=== PATIENT | male | born 1980 | race Caucasian/White ===

== ENCOUNTER → 2020-08-24 17:20 | Outpatient (CLI) | payer OTHER, SELFPAY ==
--- NOTE | ~2020-08-24 | XR_ITS ---
EXAMINATION: XR abdomen/kub 1V, XR lumbar spine 2-3V DATE: 08/24/2020 17:44 INDICATION: Low back pain TECHNIQUE: 1. A supine view of the abdomen on 2 radiographs was obtained. 2. AP, lateral and coned-down lateral lumbosacral views of the lumbar spine were obtained. COMPARISON: None. FINDINGS: KUB: Small amount of gas and stool scattered throughout the colon. No dilated loops of gas-filled bowel to suggest obstruction. Small phlebolith in the left hemipelvis. No other suspicious calcifications in the abdomen or pelvis. Lung bases are clear. Heart size is normal. Bones are unremarkable. Lumbar spine: 3 mm retrolisthesis L4 on L5. Minimal likely physiologic anterior wedging at T12. Lumbar vertebral ochoa dy heights are normal. Disc heights are normal with mild anterior degenerative endplate changes at se veral levels in the lumbar and lower thoracic spine. Moderate facet osteoarthritis on the right at L5 -S1. Otherwise minimal to mild lumbar facet osteoarthritis. Sacrum and bilateral sacral iliac joints are normal. IMPRESSION: 1. 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 Otherwise minimal to mild lumbar spondylosis. 2. Normal bowel gas pattern and no evident urolithiasis. Reviewed, dictated and finalized at location A. T COORDINATOR IMPRESSION: 1. 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 Otherwise minimal to mi ld lumbar spondylosis. 2. Normal bowel gas pattern and no evident urolithiasis.
== END ==
PROVIDERS: PCP Physician Assistant; Visit Provider Physician Assistant
DX: M51.36 Other intervertebral disc degeneration, lumbar region (principal); M47.896 Other spondylosis, lumbar region
CPT/HCPCS: 72100; 74018

== ENCOUNTER → 2021-07-23 07:57 | Outpatient (CLI) | payer OTHER, SELFPAY ==
--- NOTE | ~2021-07-23 | US_ITS ---
EXAMINATION: US abdomen complete EXAM DATE: 07/23/2021 08:34 INDICATION: Upper abdominal pain. TECHNIQUE: Multiple grayscale and Doppler images of the complete abdomen were obtained (by a technolo gist who performed the scan) and subsequently reviewed. There is no prior study for comparison. FINDINGS: The abdominal aorta is normal in caliber. Visualized portion IVC is patent. The pancreatic head a nd body are normal in appearance. The pancreatic tail is not visualized. The liver has normal echogenicity and contour. There are no focal liver lesions identified. There is no evidence of intrahepatic biliary duct dilation. Portal venous flow was seen in the hepatopedal , normal direction and has normal Doppler waveform. Common bile duct measures 4 mm, which is normal. The gallbladder wall is normal in thickness, with ex pected amount of distention. No sonographic evidence of pericholecystic fluid. There is no cholelit hiases. Technologist performing exam reports patient did not demonstrate sonographic Joshi's sign. Please note that this sign is less reliable in patients who have received pain medication. Right kidney: There is normal contour and echogenicity. It measures 11.4 x 4.5 x 7.1 centimeters. There are no focal renal lesions identified. There is no hydronephrosis. Left kidney: There is normal contour and echogenicity. It measures 11.0 x 6.2 x 5.7 centimeters. T here are no focal renal lesions identified. There is no hydronephrosis. The spleen measures 10.8 centimeters and is morphologically normal. IMPRESSION: 1. Unremarkable complete abdominal ultrasound exam. Reviewed, dictated and finalized at location B. OVOLTAIC TECHNICIAN
--- NOTE | ~2021-07-23 | XR_ITS ---
EXAMINATION: [id number]_CR EXAM DATE: 07/23/2021 08:26 INDICATION: Right-sided lateral mid rib pain for 2 weeks. TECHNIQUE: Frontal projection of the upper right ribs, frontal projection of the lower right ribs, ob lique projection of the right ribs, frontal chest x-ray(s) for interpretation. There is no prior cooper dy for comparison. FINDINGS: There are no displaced acute right rib fractures identified. There is no soft tissue abno rmality seen. No confluent consolidation, pneumothorax or pleural effusion suspected. IMPRESSION: No displaced right rib fractures or other acute cardiopulmonary findings. Reviewed, dictated and finalized at location B. ODITY MERCHANT IMPRESSION: No displaced right rib fractures or other acute cardiopulmonary fi ndings.
--- NOTE | ~2021-07-23 | XR_ITS ---
EXAMINATION: XR thoracic spine 3V EXAM DATE: 07/23/2021 08:26 INDICATION: Acute thoracic back pain. TECHNIQUE: Frontal and lateral projections of the thoracic spine as well as lateral swimmers projecti on of the upper thoracic spine for interpretation. There is no prior study for comparison. FINDINGS: There are no acute fractures identified. There are no bony erosions identified. The verteb ral bodies are aligned in the AP dimension. Vertebral body and disc heights are well-maintained. Para spinal soft tissue is unremarkable. IMPRESSION: Unremarkable thoracic x-ray exam. Reviewed, dictated and finalized at location B. E BRAIDER
== END ==
PROVIDERS: PCP Physician Assistant; Visit Provider Physician Assistant
DX: M54.6 Pain in thoracic spine (principal); R07.81 Pleurodynia; R10.10 Upper abdominal pain, unspecified
CPT/HCPCS: 71101; 72072; 76700

== ENCOUNTER → 2023-01-13 07:50 | Outpatient (CLI) | payer BC, SELFPAY ==
--- NOTE | ~2023-01-13 | US_ITS ---
US right upper quadrant INDICATION: Right upper quadrant pain PROCEDURE: Realtime right upper abdominal ultrasound. COMPARISON: 07/23/2021 FINDINGS: The pancreas is normal without focal mass or pancreatic ductal dilation. Liver echotexture is normal without discrete mass. There is normal directional flow in the portal vein. The gallbladder is normal without stones, gallbladder wall thickening or pericholecystic fluid. Comm on bile duct measures 3 mm. No sonographic Joshi's sign. IMPRESSION: 1: Unremarkable abdominal ultrasound. Reviewed, dictated and finalized at location A.
== END ==
PROVIDERS: PCP Physician Assistant; Visit Provider Physician Assistant
DX: R07.81 Pleurodynia (principal); R10.11 Right upper quadrant pain
CPT/HCPCS: 76705

== ENCOUNTER 2024-04-21 12:37 | Outpatient (CLI) | payer BC, SELFPAY ==
--- NOTE | ~2024-04-21 | XR_ITS ---
Clinical Indication: Cough, fever PA and lateral views of the chest: Comparison: None Findings: The lungs are clear, without evidence of focal consolidation or pleural effusion. Cardiome diastinal silhouette is within normal limits. Bones and soft tissues are unremarkable. Impression: Normal chest. Reviewed, dictated and finalized at location . Impression: Normal chest.
== END 2024-04-21 12:38 | disposition home or self-care (01) ==
PROVIDERS: PCP Physician Assistant; Visit Provider Physician Assistant
DX: R09.89 Other specified symptoms and signs involving the circulatory and respiratory systems (principal)
CPT/HCPCS: 71046

== ENCOUNTER 2025-05-11 00:09 | Day surgery (SDC) | payer BC, SELFPAY ==
[2025-04-26 08:40] VITALS: BMI 29.9
--- OUTSIDE RECORDS SUMMARY | 2025-05-11 00:13 | XMS_ITS | Encounter Summary ---
Author Organization [facility] Address [address] [place] [address] Care Team Providers Care Belt Cleaner Name Role Phone Chuy Salgado MD Primary Care Provider [phone] Encounter Details Date Type Department Care Team (Latest Contact Info) Description 08/07/2001 Outpatient Historical HIS [facility] Chuy Wilhelm MD 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 [place], [place] [id number] PCP - General 03/27/01 documented as of this encounter
--- OUTSIDE RECORDS SUMMARY | 2025-05-11 00:13 | XMS_ITS | Clinical Summary ---
Author Organization [facility] [email or web address] Address [address] [place] [address] Care Team Providers Care Monorail Hooker Name Role Phone Lauren Capps Primary Care Pr ovider Source Comments [facility],non-owned Affiliates and Associated Physician Practices is amultiple site organization consisting of ambulatory clinics and hospital sitesin [place], [place], [place] and [place]. This disclosure is being madepursuant to the Care Everywhere program and may not contain all information available regarding this patient. Last updated 18.[facility] [email or web address] Allergies No known active allergies Medications * Be aware that medications may not be up to date on this document. Alwaysverify current medications with the patient. rosuvastatin (Crestor) 10 MG tablet Take 1 (one) tablet by mouth every evening Active Encounters Date Type Department Care Team Description 04/20/2025 Travel 02/22/2025 Telephone [facility] - Dermatology [address] [place] [phone] Tanisha Reveles MD Follow-up (Post MiraDry 02/15/25) 02/15/2025 8:00 AM CDT Cosmetic Visit [facility] - Cosmetic Dermatology [address] , [facility] [address] [place] [id number] Cara Melendez MD 02/15/2025 Travel 02/10/2025 Telephone [facility] - Dermatology [address] [place] [address] Rajni Sagastume MD Follow-up from Last 3 Months Family History Medical History Relation Name Comments Cancer - Skin, Melanoma Mother Cancer - Skin, Non Melanoma Neg Hx Relation Name Status Comments Mother Social History Tobacco Use Types Packs/Day Years Used Date Smoking Tobacco: Former Cigarettes Smokeless Tobacco: Never Tobacco Cessation:Counseling Given: Not Answered Alcohol Use Standard Drinks/Week Comments Yes 0 (1 standard drink = 0.6 oz pur e alcohol) Sex and Gender Information Value Date Recorded Sex Assigned at Male 03/30/2024 1:50 PM CDT Legal Sex Male 1:49 PM CDT Gender Identity Male 03/30/2024 1:50 PM CDT Sexual Orientation Straight 03/30/2024 1: 50 PM CDT Plan of Treatment Upcoming Encounters Date Type Department Care Team (Late st Contact Info) Description 06/27/2025 8:30 AM PIPE WASHER Office Visit [facility] - Cosmetic Dermatology [address], [facility] [address] [place] [address] Jessie Weston, LUDLOW MACHINE OPERATOR-PLANT ETIOLOGIST [address] [facility] [address] [place] [address] Health Maintenance Due Date Last Done Comments COLOGUARD (AGES 45-75) - COLON CA SCREENING 1979 COLON MONITORING 1979 COLONOSCOPY - COLON CA SCREENING 1979 CT COLONOGRAPHY - COLON CA SCREENING 1979 Colorectal Cancer Screening 1979 FIT - COLON CA SCREENING 1979 FLEX SIG - COLON CA SCREENING 1979 HIV SCREENING 1994 HEPATITIS C SCREENING 05/09/1997 DTAP/TDAP/TD VACCINES (1 - Tdap) 1998 HEPATITIS B VACCINE (1 of 3 - 19+ 3-dose series) 1998 HPV VACCINE (1 - 3-dose SCDM series) 2006 DEPRESSION SCREENING 08/11/2024 COVID-19 VACCINE ( season) 2025 06/06/2022, 07/10/2021, 11/30/2020, Additional history exists INFLUENZA VACCINE (#1) 2025 06/25/2023 ZOSTER VACCINE (1 of 2) 2029 HIB VACCINE Aged Out No longer eligi ble based on patient's age to complete this topic MENINGOCOCCAL (Group B) VACCINE SHARED DECISION-MAKING Aged Out No longer eligible based on patient's age to complete this topic MENINGOCOCCAL GROUPS A/C/Y/W VACCINE Aged Out No longer eligible based on patient's age to complete this topic PNEUMOCOCCAL VACCINE Aged Out No long er eligible based on patient's age to complete this topic [place] [address] Care Teams Monorail Hooker Relationship Specialty Start Date End Date Lauren Capps PA [address] [place] [address] PCP - General Physician Financial Adviser 05/17/24
--- OUTSIDE RECORDS SUMMARY | 2025-05-11 00:13 | XMS_ITS | Encounter Summary ---
Author Organization [facility] Address [address] [place] [address] Care Team Providers Care Merchandising Internship Name Role Phone Chuy Salgado MD Primary Care Provider [phone] Encounter Details Date Type Department Care Team (Latest Contact Info) Description 03/27/2001 Outpatient Historical HIS [facility] Chuy Wilhelm MD [address] [place], [place] [id number] Routine general medical examination at a health care facility (Primary Dx) Social History Tobacco Use Types Packs/Day Years Used Date Smoking Tobacco: Never Assessed Sex and Gender Information Value Date Recorded Sex Assigned at Not on file Legal Sex Male 3:16 AM DEVELOPER ADVOCATE Gender Identity Not on file Sexual Orientation Not on file documented as of this encounter Plan of Treatment Not on file documented as of this encounter Visit Diagnoses Diagnosis Routine general medical examination at a health care facility- Primary documented in this encounter Care Teams Merchandising Internship Relationship Specialty Start Date End Date Chuy Salgado MD [address] [place] [address] PCP - General 03/27/01 documented as of this encounter
--- OUTSIDE RECORDS SUMMARY | 2025-05-11 00:13 | XMS_ITS | Encounter Summary ---
Author Organization [facility] Address [address] [place] [address] Care Team Providers Care Commercial Interior Designer Name Role Phone Chuy Salgado MD Primary Care Provider Encounter Details Date Type Department Care Team (Late st Contact Info) Description 01/30/2009 Outpatient Historical HIS [facility] Chuy Wilhelm MD [address] [place], [place] [phone] Headache Social History Tobacco Use Types Packs/Day Years Used Date Smoking Tobacco: Every Day Cigarettes Alcohol Use Standard Drinks/Week Comments Yes 0 (1 standard drink = 0.6 oz pur e alcohol) Sex and Gender Information Value Date Recorded Sex Assigned at Not on file Legal Sex Male 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
--- OUTSIDE RECORDS SUMMARY | 2025-05-11 00:13 | XMS_ITS | Encounter Summary ---
Author Organization [facility] Address [address] [place] [address] Care Team Providers Care Printer Slotter Helper Name Role Phone Chuy Salgado MD Primary Care Provider [phone] Encounter Details Date Type Department Care Team (Latest Contact Info) Description 08/31/2004 Outpatient Historical HIS [facility] Chuy Wilhelm MD [address] [place] [address] ABNORMAL LIVER FUNCTION STUDY (Primary Dx) Social History Tobacco Use Types Packs/Day Years Used Date Smoking Tobacco: Never Assessed Sex and Gender Information Value Date Recorded Sex Assigned at Not on file Legal Sex Male 3:16 AM UNIVERSAL BRANCH CONSULTANT Gender Identity Not on file Sexual Orientation Not on file documented as of this encounter Plan of Treatment Not on file documented as of this encounter Procedures Procedure Name Priority Date/Time Associated Diagnosis Comments CBC WITH DIFFERENTIAL Routine 08/31/2004 9:05 AM UNIVERSAL BRANCH CONSULTANT CBC WITH DIFFERENTIAL Routine 08/31/2004 9:05 AM UNIVERSAL BRANCH CONSULTANT TSH Routine 08/31/2004 9:05 AM UNIVERSAL BRANCH CONSULTANT LIPID PANEL Routine 08/31/2004 9:05 AM UNIVERSAL BRANCH CONSULTANT COMPREHENSIVE METABOLIC PANEL Routine 08/31/2004 9:05 AM UNIVERSAL BRANCH CONSULTANT documented in this encounter Results * CBC WITH DIFFERENTIAL (08/31/2004 9:05 AM UNIVERSAL BRANCH CONSULTANT) NEUTROPHILS 52 45 - 70 % INTERFAC E SYSTEM LYMPHOCYTES 38 16 - 45 % INTERFAC E SYSTEM MONOCYTES 8 3 - 13 % INTERFACE SYSTEM EOSINOPHILS 1 0 - 7 % INTERFAC E SYSTEM BASOPHILS 1 0 - 2 % INTERFACE SYSTEM NEUTROPHIL ABSOLUTE 2.45 1.90 - 7.00 K/uL INTERFACE SYSTEM LYMPHOCYTE ABSOLUTE 1.77 0.70 - 4.50 K/uL INTERFACE SYSTEM MONOCYTE ABSOLUTE 0.38 0.10 - 1.30 K/uL INTERFACE SYSTEM EOSINOPHIL ABSOLUTE 0.05 0.00 - 0.70 K/uL INTERFACE SYSTEM BASOPHILS ABSOLUTE 0.04 0.00 - 0.20 K/uL INTERFACE SYSTEM 08/31/2004 9:05 AM UNIVERSAL BRANCH CONSULTANT Chuy Salgado MD HEMATOLOGY ORDERABLES Final Resu lt INTERFACE SYSTEM Refer to clinic/hospital department * CBC WITH DIFFERENTIAL (08/31/2004 9:05 AM UNIVERSAL BRANCH CONSULTANT) WBC 4.7 4.0 - 9.8 K/uL INTERFACE SYSTEM RBC 5.02 4.50 - 5.40 M/uL INTERFACE SYSTEM HEMOGLOBIN 15.6 13.6 - 16.5 g/dL INTERFACE SYSTEM HEMATOCRIT 46.4 40.0 - 48.0 % INTERFACE SYSTEM MCV 92.4 82.0 - 99.0 fL INTERFACE SYSTEM MCH 31.1 27.2 - 32.6 pg INTERFACE SYSTEM MCHC 33.6 31.5 - 35.5 % INTERFACE SYSTEM RDW 13.2 11.5 - 14.5 % INTERFACE SYSTEM RDW-STDEV 44.8 37.1 - 48.7 fL INTERFACE SYSTEM PLATELETS 218 140 - 350 K/uL INTERFACE SYSTEM MPV 10.9 9.3 - 12.4 fL INTERFACE SYSTEM 08/31/2004 9:05 AM UNIVERSAL BRANCH CONSULTANT Chuy Salgado MD HEMATOLOGY ORDERABLES Final Resu lt INTERFACE SYSTEM Refer to clinic/hospital department * TSH (08/31/2004 9:05 AM UNIVERSAL BRANCH CONSULTANT) TSH 1.79 0.27 - 4.20 uU/mL INTERFACE SYSTEM 08/31/2004 9:05 AM UNIVERSAL BRANCH CONSULTANT Chuy Salgado MD CHEMISTRY ORDERABLES Final Resul t Performing Organization Address [facility] Co de Phone Number INTERFACE SYSTEM Refer to clinic/hospital department * (ABNORMAL) LIPID PANEL (08/31/2004 9:05 AM UNIVERSAL BRANCH CONSULTANT) CHOLESTEROL 261(H) 100 - 199 mg/dL INTERFACE SYSTEM TRIGLYCERIDE 132 10 - 149 mg/dL INTERFACE SYSTEM HDL 58 40 - 59 mg/dL INTERFACE SYSTEM LDL CALCULATED 177(H) <=99 mg/dL INTERFACE SYSTEM CHOL/HDL RATIO 4.5 2.0 - 5.0 INTER FACE SYSTEM Comment:See interpretive karthikeyan a section for risk classifications. LIPID PANEL COMMENT See below INTERFACE SYSTEM Comment: Adult ATP III Classifications: Cholesterol (mg/dL) Triglyceride (mg/dL) Desirable <200 Normal <150 Borderline 200 - 239 Borderline High 150 - 199 High >=240 High 200 - 499 Very High >=500 HDL Cholesterol (mg/dL) LDL (mg/dL) Low (increased risk) <40 Optimal <100 High (reduced risk) >=60 Near or above optimal 100 - 129 Borderline 130 - 159 High 160 - 189 Very High >=190 LDL calculation is not accurate if Triglycerides are greater than 400 mg /dL Pediatric NCEP Classifications: Cholesterol(<20 years),(mg/dL) Triglyceride Desirable <170 Pediatric classification Borderline 170 - 199 not defined. High >=200 HDL (<5 years) LDL (mg/dL) No Reference Range Established Desirable <110 Borderline 110 - 129 High >=130 08/31/2004 9:05 AM UNIVERSAL BRANCH CONSULTANT Chuy Salgado MD CHEMISTRY ORDERABLES Final Resul t Performing Organization Address City/[facility]/ZIP Co de Phone Number INTERFACE SYSTEM Refer to clinic/hospital department * (ABNORMAL) COMPREHENSIVE METABOLIC PANEL (08/31/2004 9:05 AM UNIVERSAL BRANCH CONSULTANT) GLUCOSE 98 65 - 109 mg/dL INTERFACE SYSTEM CREATININE 1.1 0.5 - 1.3 mg/dL INTERFACE SYSTEM CALCIUM 9.4 8.6 - 10.2 mg/dL INTERFACE SYSTEM AST 57(H) 12 - 38 U/L INTERFACE SYSTEM ALKALINE PHOSPHATASE 81 40 - 129 U/L INTERFACE SYSTEM BUN 16 6 - 20 mg/dL INTERFACE SYSTEM BILIRUBIN TOTAL 0.5 0.2 - 1.0 mg/dL INTERFACE SYSTEM ALBUMIN 4.8 3.4 - 4.8 g/dL INTERFACE SYSTEM TOTAL PROTEIN 7.7 6.3 - 8.6 g/dL INTERFACE SYSTEM ALT 115(H) 0 - 41 U/L INTERFACE SYSTEM SODIUM 140 135 - 145 mmol/L INTERFACE SYSTEM POTASSIUM 4.4 3.5 - 4.9 mmol/L INTERFACE SYSTEM CHLORIDE 103 96 - 108 mmol/L INTERFACE SYSTEM CO2 28 22 - 30 mmol/L INTERFACE SYSTEM 08/31/2004 9:05 AM UNIVERSAL BRANCH CONSULTANT us Chuy Salgado MD CHEMISTRY ORDERABLES Final Resul t INTERFACE SYSTEM Refer to clinic/hospital department documented in this encounter Visit Diagnoses Diagnosis Nonspecific abnormal results of liver function study- Primary documented in this encounter Care Teams Printer Slotter Helper Relationship Specialty Start Date End Date Chuy Salgado MD [address] [facility] [address] [place] [address] PCP - General 03/27/01 documented as of this encounter
--- OUTSIDE RECORDS SUMMARY | 2025-05-11 00:13 | XMS_ITS | Data Portability ---
Author Organization [facility] Address [address] [facility] [address] Care Team Providers Care Electrophysiology Technologist Name Role Phone YASMEEN PARTIDA Primary Care Provider Unavailab le Assessment Encounter Date Assessment Date Assessment LastModified by Organization Details LastModified Time 10/17/2023 10/17/2023 Colonoscopy plan next year. Not available 10/17/2023 09:35:02 01/14/2025 01/14/2025 Eye exam and dental up-to-date Not available 02/04/2025 00:21:40 Plan of Treatment Reminders Order Date Submit Date Provider Last Modified By Organization Details Last Modified Time Details Appointments ANY 15 2025 09:00A M STACEY Benitez Not available Not available Not available Lab TSH + free T4, serum 2024 025 MARGARETH [facility], [address], [place], [address], 02/07/2025 07:06:43 CBC w/ auto diff 2024 025 MARGARETH [facility], [address], [place], [address], 02/07/2025 07:06:46 CMP, serum or plasma 2024 025 MARGARETH [facility], [address], [place], [address], 02/07/2025 07:06:44 lipid panel, serum 2024 025 MARGARETH Hunter, [address], [place], [address], 02/07/2025 07:06:42 PSA, total, serum or plasma 2024 025 MARGARETH Hunter, [address], [place], [address], 02/07/2025 07:06:48 testoster one, total, serum 2024 025 MARGARETHLAQUITA Gonzales, [address], [place], [address], 02/07/2025 07:06:49 HbA1c (hemoglob in A1c), blood 2024 025 MARGARETH Hunter, [address], [place], [address], 02/07/2025 07:06:45 urinalysi s complete, reflex culture 2023 024 MARGARETH Hunter, [address], [place], [address], 05/25/2024 13:11:50 urinalysi s, dipstick 2023 024 In-Office Order, Internal Use Only DO Not Attach Compendium DO Not Attach Compendium, Do Not Delete/merge, [id number] 05/21/2024 18:07:23 CBC w/ auto diff 2023 024 MARGARETH Hunter, [address], [place], [address], 05/25/2024 13:11:52 CMP, serum or plasma 2023 024 MARGARETH Hunter, [address], [place], [address], 05/25/2024 13:11:49 HbA1c (hemoglob in A1c), blood 2023 024 MARGARETH Hunter, [address], [place], [address], 05/25/2024 13:11:51 PSA, total, serum or plasma 2023 024 MARGARETH Hunter, [address], [place], [address], 11/04/2023 20:09:31 testoster one, total, serum 2023 024 MARGARETH Hunter, [address], [place], [address], 11/04/2023 20:09:31 TSH + free T4, serum 2023 024 MARGARETH Hunter, [address], [place], [address], 11/04/2023 20:09:28 CBC w/ auto diff 2023 024 MARGARETH Hunter, [address], [place], [address], 11/04/2023 20:09:30 CMP, serum or plasma 2023 024 MARGARETH Hunter, [address], [place], [address], 11/04/2023 20:09:29 HbA1c (hemoglob in A1c), blood 2023 024 MARGARETH Hunter, [address], [place], [address], 11/04/2023 20:09:30 lipid panel, serum 2023 024 MARGARETH Hunter, [address], [place], [address], 11/04/2023 20:09:29 Referral None recorded. Procedures colonosco py screening (PROC) - We have ran insurance bharath means and it has been verified he has coverage 2024 025 [facility], [address], [address], [place], [address], 02/22/2025 13:10:41 Surgeries None recorded. Imaging XR, chest, 2 view 2023 [facility], [address], [address], [place], [address], 04/21/2024 16:27:46 Medication Orders Cipro 500 mg tablet 2023 025 [id number], [address] [place], [address], 01/14/2025 09:41:38 Diflucan 150 mg tablet 2023 024 [facility][id number], [address] [place], [address], 01/14/2025 09:41:42 amoxicill in 875 mg-potass ium clavulana te 125 mg tablet 2023 024 [id number] [address] [place], [address], 05/21/2024 13:54:09 Patient TargetsNo targets recorded. Patient Instructions Encounter Date Encounter Id Patient Instructions Last Modified By Organization Details Last Modified Time 05/21/2024 [id number] A healthy lifestyle: care instructions Not available 05/21/2024 16:20:45 01/14/2025 [id number] A healthy lifestyle: care instructions Not available 01/14/2025 10:06:49 Reason for Referral None Reported. Results Created Date Observation Date Name Description Value Unit Range Abnormal Flag Note LastModifiedBy Organization Detail LastModifiedTime 10/30/19 24 10/31/2023 TSH+F REE T4 TSH 1.660 uIU/m L 0.450- 4.500 Not Available [facility] [address] [place], [address], 11/04/2023 20:09:28 10/30/19 24 10/31/2023 TSH+F REE T4 T4,free(dire ct) 1.23 NG/dL 0.82-1 .77 Not Available [facility] [address] [place], [address], 11/04/2023 20:09:28 10/30/19 24 10/31/2023 LIPID PANEL cholesterol, total 147 mg/dL 100-19 9 Not Available [facility] [address] [place], [address], 11/04/2023 20:09:28 10/30/19 24 10/31/2023 LIPID PANEL triglyceride s 109 mg/dL 0-149 Not Available [facility] [address] [place], [address], 11/04/2023 20:09:28 10/30/19 24 10/31/2023 LIPID PANEL HDL cholesterol 50 mg/dL >39 Not Available [facility] [address] [place], [address], 11/04/2023 20:09:28 10/30/19 24 10/31/2023 LIPID PANEL VLDL cholesterol kellie 20 mg/dL 5-40 Not Available [facility] [address] [place], [address], 11/04/2023 20:09:28 10/30/19 24 10/31/2023 LIPID PANEL LDL chol calc ([facility]) 77 mg/dL 0-99 Not Available [facility] [address] [place], [address], 11/04/2023 20:09:28 10/30/19 24 10/31/2023 COMP. METAB OLIC PANEL (14) glucose 94 mg/dL 70-99 Not Available [facility] [address] [place], [address], 11/04/2023 20:09:29 10/30/19 24 10/31/2023 COMP. METAB OLIC PANEL (14) BUN 15 mg/dL 6-24 Not Available [facility] [address] [place], [address], 11/04/2023 20:09:29 10/30/19 24 10/31/2023 COMP. METAB OLIC PANEL (14) creatinine 1.13 mg/dL 0.76-1 .27 Not Available [facility] [address] [place], [address], 11/04/2023 20:09:29 10/30/19 24 10/31/2023 COMP. METAB OLIC PANEL (14) eGFR 82 mL/mi n/1.7 3 >59 Not Available [facility] [address] [place], [address], 11/04/2023 20:09:29 10/30/19 24 10/31/2023 COMP. METAB OLIC PANEL (14) BUN/creatini ne ratio 13 9-20 Not Available [facility] [address] [place], [address], 11/04/2023 20:09:29 10/30/19 24 10/31/2023 COMP. METAB OLIC PANEL (14) sodium 143 mmol/ L 134-14 4 Not Available [facility] [address] [place], [address], 11/04/2023 20:09:29 10/30/19 24 10/31/2023 COMP. METAB OLIC PANEL (14) potassium 4.6 mmol/ L 3.5-5. 2 Not Available [facility] [address] [place], [address], 11/04/2023 20:09:29 10/30/19 24 10/31/2023 COMP. METAB OLIC PANEL (14) chloride 101 mmol/ L 96-106 Not Available [facility] [address] [place], [address], 11/04/2023 20:09:29 10/30/19 24 10/31/2023 COMP. METAB OLIC PANEL (14) carbon dioxide, total 25 mmol/ L 20-29 Not Available [facility] [address] [place], [address], 11/04/2023 20:09:29 10/30/19 24 10/31/2023 COMP. METAB OLIC PANEL (14) calcium 10.2 mg/dL 8.7-10 .2 Not Available [facility] [address] [place], [address], 11/04/2023 20:09:29 10/30/19 24 10/31/2023 COMP. METAB OLIC PANEL (14) protein, total 7.5 g/dL 6.0-8. 5 Not Available [facility] [address] [place], [address], 11/04/2023 20:09:29 10/30/19 24 10/31/2023 COMP. METAB OLIC PANEL (14) albumin 5.1 g/dL 4.1-5. 1 Not Available [facility] [address] [place], [address], 11/04/2023 20:09:29 10/30/19 24 10/31/2023 COMP. METAB OLIC PANEL (14) globulin, total 2.4 g/dL 1.5-4. 5 Not Available [facility] [address] [place], [address], 11/04/2023 20:09:29 10/30/19 24 10/31/2023 COMP. METAB OLIC PANEL (14) A/G ratio 2.1 1.2-2. 2 Not Available [facility] [address] [place], [address], 11/04/2023 20:09:29 10/30/19 24 10/31/2023 COMP. METAB OLIC PANEL (14) bilirubin, total 0.5 mg/dL 0.0-1. 2 Not Available [facility] [address] [place], [address], 11/04/2023 20:09:29 10/30/19 24 10/31/2023 COMP. METAB OLIC PANEL (14) alkaline phosphatase 70 IU/L 44-121 Not Available [facility] [address] [place], [address], 11/04/2023 20:09:29 10/30/19 24 10/31/2023 COMP. METAB OLIC PANEL (14) AST (SGOT) 40 IU/L 0-40 Not Available [facility] [address] [place], [address], 11/04/2023 20:09:29 10/30/19 24 10/31/2023 COMP. METAB OLIC PANEL (14) ALT (SGPT) 56 IU/L 0-44 above high normal Not Available [facility] [address] [place], [address], 11/04/2023 20:09:29 10/30/19 24 10/31/2023 HEMOG LOBIN A1C hemoglobin A1C 5.9 % 4.8-5. 6 above high normal Predi abete s: 5.7 - 6.4 Diabe daniel: >6.4 Glyce yarelis contr ol for adult s with diabe daniel: <7.0 Not Available [facility] [address] [place], [address], 11/04/2023 20:09:29 10/30/19 24 10/30/2023 CBC WITH DIFFE RENTI AL/PL ATELE T WBC 5.5 x10e3 /uL 3.4-10 .8 Not Available [facility] [address] [place], [address], 11/04/2023 20:09:30 10/30/19 24 10/30/2023 CBC WITH DIFFE RENTI AL/PL ATELE T RBC 5.17 x10e6 /uL 4.14-5 .80 Not Available [facility] [address] [place], [address], 11/04/2023 20:09:30 10/30/19 24 10/30/2023 CBC WITH DIFFE RENTI AL/PL ATELE T hemoglobin 15.8 g/dL 13.0-1 7.7 Not Available [facility] [address] [place], [address], 11/04/2023 20:09:30 10/30/19 24 10/30/2023 CBC WITH DIFFE RENTI AL/PL ATELE T hematocrit 45.3 % 37.5-5 1.0 Not Available [facility] [address] [place], [address], 11/04/2023 20:09:30 10/30/19 24 10/30/2023 CBC WITH DIFFE RENTI AL/PL ATELE T MCV 88 fL 79-97 Not Available [facility] [address] [place], [address], 11/04/2023 20:09:30 10/30/19 24 10/30/2023 CBC WITH DIFFE RENTI AL/PL ATELE T MCH 30.6 pg 26.6-3 3.0 Not Available [facility] [address] [place], [address], 11/04/2023 20:09:30 03/21/20 24 10/30/2023 CBC WITH DIFFE RENTI AL/PL ATELE T MCHC 34.9 g/dL 31.5-3 5.7 Not Available [facility] [address] [place], [address], 11/04/2023 20:09:30 10/30/19 24 10/30/2023 CBC WITH DIFFE RENTI AL/PL ATELE T RDW 12.9 % 11.6-1 5.4 Not Available [facility] [address] [place], [address], 11/04/2023 20:09:30 10/30/19 24 10/30/2023 CBC WITH DIFFE RENTI AL/PL ATELE T platelets 231 x10e3 /uL 150-45 0 Not Available [facility] [address] [place], [address], 11/04/2023 20:09:30 10/30/19 24 10/30/2023 CBC WITH DIFFE RENTI AL/PL ATELE T neutrophils 48 % notest ab. Not Available [facility] [address] [place], [address], 11/04/2023 20:09:30 10/30/19 24 10/30/2023 CBC WITH DIFFE RENTI AL/PL ATELE T lymphs 42 % notest ab. Not Available [facility] [address] [place], [address], 11/04/2023 20:09:30 10/30/19 24 10/30/2023 CBC WITH DIFFE RENTI AL/PL ATELE T monocytes 8 % notest ab. Not Available [facility] [address] [place], [address], 11/04/2023 20:09:30 10/30/19 24 10/30/2023 CBC WITH DIFFE RENTI AL/PL ATELE T eos 1 % notest ab. Not Available [facility] [address] [place], [address], 11/04/2023 20:09:30 10/30/19 24 10/30/2023 CBC WITH DIFFE RENTI AL/PL ATELE T basos 1 % notest ab. Not Available [facility] [address] [place], [address], 11/04/2023 20:09:30 10/30/19 24 10/30/2023 CBC WITH DIFFE RENTI AL/PL ATELE T neutrophils (absolute) 2.7 x10e3 /uL 1.4-7. 0 Not Available [facility] [address] [place], [address], 11/04/2023 20:09:30 10/30/19 24 10/30/2023 CBC WITH DIFFE RENTI AL/PL ATELE T lymphs (absolute) 2.3 x10e3 /uL 0.7-3. 1 Not Available [facility] [address] [place], [address], 11/04/2023 20:09:30 10/30/19 24 10/30/2023 CBC WITH DIFFE RENTI AL/PL ATELE T monocytes(ab solute) 0.5 x10e3 /uL 0.1-0. 9 Not Available [facility] [address] [place], [address], 11/04/2023 20:09:30 10/30/19 24 10/30/2023 CBC WITH DIFFE RENTI AL/PL ATELE T eos (absolute) 0.0 x10e3 /uL 0.0-0. 4 Not Available [facility] [address] [place], [address], 11/04/2023 20:09:30 10/30/19 24 10/30/2023 CBC WITH DIFFE RENTI AL/PL ATELE T baso (absolute) 0.0 x10e3 /uL 0.0-0. 2 Not Available [facility] [address] [place], [address], 11/04/2023 20:09:30 10/30/19 24 10/30/2023 CBC WITH DIFFE RENTI AL/PL ATELE T immature granulocytes 0 % notest ab. Not Available [facility] [address] [place], [address], 11/04/2023 20:09:30 10/30/19 24 10/30/2023 CBC WITH DIFFE RENTI AL/PL ATELE T immature grans (abs) 0.0 x10e3 /uL 0.0-0. 1 Not Available [facility] [address] [place], [address], 11/04/2023 20:09:30 10/30/19 24 10/31/2023 PROST ATE-S PECIF IC AG prostate specific Ag 0.9 NG/mL 0.0-4. 0 Della ECLIA metho dolog y. Accor ding to the Ameri can Urolo gical Assoc iatio n, Serum PSA shoul d decre ase and remai n at undet ectab le level s after radic al prost atect yasmin. The AUA defin es bioch emica l recur rence as an initi al PSA value 0.2 ng/mL or great er follo wed by a subse quent confi rmato ry PSA value 0.2 ng/mL or great er. Value s obtai sandi with diffe rent assay metho ds or kits canno t be used inter [place] eably . Resul ts canno t be inter prete d as absol poarch evide nce of the prese nce or absen ce of alin coto se. Not Available [facility] [address] [place], [address], 11/04/2023 20:09:31 10/30/19 24 11/04/2023 TESTO STERO NE, TOTAL , LC/MS testosterone , total, lc/MS 432 NG/dL This test was devel oped and its perfo rmanc e mulu cteri stics deter mined by [facility]. It has not been clear ed or appro jack by the Food and Drug Admin istra tion. Refer ence Range : Adult Males >18 years 264 - 916 This [facility] LC/MS -MS metho d is curre ntly certi fied by the CDC Hormo ne Stand ardiz ation Progr am (HoST ). Adult male refer ence inter [place] is based on a popul ation of healt hy nonob shubham males (BMI <3 0) betwe en 19 and 39 years old. Duncan dewey, et.al . JCEM 2017, 102;1 161-1 173 PMID: 77330 103. Not Available [facility] [address] [facility], [place], [address], 11/04/2023 20:09:31 05/21/2005/21/2024 urina lysis , dipst ick Leukocytes Negati ve Not Available In-Office Order Internal Use Only DO Not Attach Compendium DO Not Attach Compendium, Do Not Delete/merge, 05/21/2024 18:06:40 05/21/2005/21/2024 urina lysis , dipst ick Nitrite negati ve Not Available In-Office Order Internal Use Only DO Not Attach Compendium DO Not Attach Compendium, Do Not Delete/merge, 05/21/2024 18:06:40 05/21/2005/21/2024 urina lysis , dipst ick Urobilinogen .2 Not Available In-Of fice Order Internal Use Only DO Not Attach Compendium DO Not Attach Compendium, Do Not Delete/merge, 05/21/2024 18:06:40 05/21/20 24 05/21/2024 urina lysis , dipst ick Protein Negati ve Not Available In-Office Order Internal Use Only DO Not Attach Compendium DO Not Attach Compendium, Do Not Delete/merge, 05/21/2024 18:06:40 05/21/2005/21/2024 urina lysis , dipst ick pH 6.0 Not Available In-Office Order Internal Use Only DO Not Attach Compendium DO Not Attach Compendium, Do Not Delete/merge, [facility] 05/21/2024 18:06:40 05/21/20 24 05/21/2024 urina lysis , dipst ick Blood Negati ve Not Available In-Office Order Internal Use Only DO Not Attach Compendium DO Not Attach Compendium, Do Not Delete/merge, [facility] 05/21/2024 18:06:40 05/21/20 24 05/21/2024 urina lysis , dipst ick Specific [place] 1.010 Not Available In-Off ice Order Internal Use Only DO Not Attach Compendium DO Not Attach Compendium, Do Not Delete/merge, [facility] 05/21/2024 18:06:40 05/21/20 24 05/21/2024 urina lysis , dipst ick Ketone Negati ve Not Available In-Office Order Internal Use Only DO Not Attach Compendium DO Not Attach Compendium, Do Not Delete/merge, [facility] 05/21/2024 18:06:40 05/21/20 24 05/21/2024 urina lysis , dipst ick Bilirubin Negati ve Not Available In-Office Order Internal Use Only DO Not Attach Compendium DO Not Attach Compendium, Do Not Delete/merge, [facility] 05/21/2024 18:06:40 05/21/2005/21/2024 urina lysis , dipst ick Glucose 100 Not Available In-Office Order Internal Use Only DO Not Attach Compendium DO Not Attach Compendium, Do Not Delete/merge, [facility] 05/21/2024 18:06:40 05/21/20 24 05/21/2024 urina lysis , dipst ick Appearance Clear Not Available In-Offi ce Order Internal Use Only DO Not Attach Compendium DO Not Attach Compendium, Do Not Delete/merge, [facility] 05/21/2024 18:06:40 05/21/20 24 05/21/2024 urina lysis , dipst ick Color Pale Yellow Not Available In-Office Order Internal Use Only DO Not Attach Compendium DO Not Attach Compendium, Do Not Delete/merge, [id number] 05/21/2024 18:06:40 05/24/2005/25/2024 COMP. METAB OLIC PANEL (14) glucose 92 mg/dL 70-99 Not Available [facility] ([facility]) [address] [facility], [place], [address], 05/25/2024 13:11:48 05/24/2005/25/2024 COMP. METAB OLIC PANEL (14) BUN 12 mg/dL 6-24 Not Available [facility] ([facility]) [address] [place], [address], 05/25/2024 13:11:48 05/24/2005/25/2024 COMP. METAB OLIC PANEL (14) creatinine 1.04 mg/dL 0.76-1 .27 Not Available [facility] ([facility]) [address] [facility], [place], [address], 05/25/2024 13:11:48 05/24/20 24 05/25/2024 COMP. METAB OLIC PANEL (14) eGFR 90 mL/mi n/1.7 3 >59 Not Available [facility] ([facility]) [address] [facility], [place], [address], 05/25/2024 13:11:48 05/24/20 24 05/25/2024 COMP. METAB OLIC PANEL (14) BUN/creatini ne ratio 12 9-20 Not Available [facility] ([facility]) [address] [place], [address], 05/25/2024 13:11:48 05/24/2005/25/2024 COMP. METAB OLIC PANEL (14) sodium 142 mmol/ L 134-14 4 Not Available [facility] ([facility]) [address] [place], [address], 05/25/2024 13:11:48 05/24/20 24 05/25/2024 COMP. METAB OLIC PANEL (14) potassium 4.4 mmol/ L 3.5-5. 2 Not Available [facility] ([facility]) [address] [place], [address], 05/25/2024 13:11:48 05/24/20 24 05/25/2024 COMP. METAB OLIC PANEL (14) chloride 102 mmol/ L 96-106 Not Available [facility] ([facility]) [address] [place], [address], 05/25/2024 13:11:48 05/24/2005/25/2024 COMP. METAB OLIC PANEL (14) carbon dioxide, total 26 mmol/ L 20-29 Not Available [facility] ([facility]) [address] [facility], [place], [address], 05/25/2024 13:11:48 05/24/2005/25/2024 COMP. METAB OLIC PANEL (14) calcium 9.7 mg/dL 8.7-10 .2 Not Available [facility] ([facility]) [address] [place], [address], 05/25/2024 13:11:48 05/24/20 24 05/25/2024 COMP. METAB OLIC PANEL (14) protein, total 7.2 g/dL 6.0-8. 5 Not Available [facility] ([facility]) [address] [place], [address], 05/25/2024 13:11:48 05/24/20 24 05/25/2024 COMP. METAB OLIC PANEL (14) albumin 5.1 g/dL 4.1-5. 1 Not Available [facility] ([facility]) [address] [place], [address], 05/25/2024 13:11:48 05/24/20 24 05/25/2024 COMP. METAB OLIC PANEL (14) globulin, total 2.1 g/dL 1.5-4. 5 Not Available [facility] ([facility]) [address] [place], [address], 05/25/2024 13:11:48 05/24/2005/25/2024 COMP. METAB OLIC PANEL (14) bilirubin, total 0.5 mg/dL 0.0-1. 2 Not Available [facility] ([facility]) [address] [facility], [place], [address], 05/25/2024 13:11:48 05/24/20 24 05/25/2024 COMP. METAB OLIC PANEL (14) alkaline phosphatase 65 IU/L 44-121 Not Available [facility] ([facility]) [address] [place], [address], 05/25/2024 13:11:48 05/24/20 24 05/25/2024 COMP. METAB OLIC PANEL (14) AST (SGOT) 29 IU/L 0-40 Not Available [facility] ([facility]) [address] [facility], [place], [address], 05/25/2024 13:11:48 05/24/2005/25/2024 COMP. METAB OLIC PANEL (14) ALT (SGPT) 42 IU/L 0-44 Not Available [facility] ([facility]) [address] [place], [address], 05/25/2024 13:11:48 05/24/2005/25/2024 UA WITH CULTU RE REFLE X specific gravity 1.007 1.005- 1.030 Not Available [facility] ([facility]) [address] [place], [address], 05/25/2024 13:11:50 05/24/2005/25/2024 UA WITH CULTU RE REFLE X pH 6.5 5.0-7. 5 Not Available [facility] ([facility]) [address] [facility], [place], [address], 05/25/2024 13:11:50 05/24/2005/25/2024 UA WITH CULTU RE REFLE X urine-color YELLOW yellow Not Available [facility] ([facility]) [address] [facility], [place], [address], 05/25/2024 13:11:50 05/24/2005/25/2024 UA WITH CULTU RE REFLE X appearance CLEAR clear Not Available [facility] ([facility]) [address] [facility], [place], [address], 05/25/2024 13:11:50 05/24/2005/25/2024 UA WITH CULTU RE REFLE X WBC esterase NEGATI VE negati ve Not Available [facility] ([facility]) [address] [facility], [place], [address], 05/25/2024 13:11:50 05/24/2005/25/2024 UA WITH CULTU RE REFLE X protein NEGATI VE negati ve/tra ce Not Available [facility] ([facility]) [address] [facility], [place], [address], 05/25/2024 13:11:50 05/24/20 24 05/25/2024 UA WITH CULTU RE REFLE X glucose NEGATI VE negati ve Not Available [facility] ([facility]) [address] [facility], [place], [address], 05/25/2024 13:11:50 05/24/20 24 05/25/2024 UA WITH CULTU RE REFLE X ketones NEGATI VE negati ve Not Available [facility] ([facility]) [address] [facility], [place], [address], 05/25/2024 13:11:50 05/24/20 24 05/25/2024 UA WITH CULTU RE REFLE X occult blood NEGATI VE negati ve Not Available [facility] ([facility]) [address] [place], [address], 05/25/2024 13:11:50 05/24/2005/25/2024 UA WITH CULTU RE REFLE X bilirubin NEGATI VE negati ve Not Available [facility] ([facility]) [address] [place], [address], 05/25/2024 13:11:50 05/24/2005/25/2024 UA WITH CULTU RE REFLE X urobilinogen ,semi-qn 0.2 mg/dL 0.2-1. 0 Not Available [facility] ([facility]) [address] [place], [address], 05/25/2024 13:11:50 05/24/2005/25/2024 UA WITH CULTU RE REFLE X nitrite, urine NEGATI VE negati ve Not Available [facility] ([facility]) [address] [facility], [place], [address], 05/25/2024 13:11:50 05/24/2005/25/2024 UA WITH CULTU RE REFLE X microscopic examination COMMEN T Micro scopi c not indic ated and not perfo rmed. Not Available [facility] ([facility]) [address] [facility], [place], [address], 05/25/2024 13:11:50 05/24/2005/25/2024 UA WITH CULTU RE REFLE X urinalysis reflex COMMEN T This speci men will not refle x to a Urine Cultu re. Not Available [facility] ([facility]) [address] [place], [address], 05/25/2024 13:11:50 05/24/2005/25/2024 HEMOG LOBIN A1C hemoglobin A1C 5.9 % 4.8-5. 6 above high normal Predi abete s: 5.7 - 6.4 Diabe daniel: >6.4 Glyce yarelis contr ol for adult s with diabe daniel: <7.0 Not Available [facility] ([facility]) [address] [facility], [place], [address], 05/25/2024 13:11:51 05/24/2005/25/2024 CBC WITH DIFFE RENTI AL/PL ATELE T WBC 4.9 x10e3 /uL 3.4-10 .8 Not Available [facility] ([facility]) [address] [facility], [place], [address], 05/25/2024 13:11:52 05/24/2005/25/2024 CBC WITH DIFFE RENTI AL/PL ATELE T RBC 4.84 x10e6 /uL 4.14-5 .80 Not Available [facility] ([facility]) [address] [facility], [place], [address], 05/25/2024 13:11:52 05/24/2005/25/2024 CBC WITH DIFFE RENTI AL/PL ATELE T hemoglobin 14.8 g/dL 13.0-1 7.7 Not Available [facility] ([facility]) [address] [facility], [place], [address], 05/25/2024 13:11:52 05/24/2005/25/2024 CBC WITH DIFFE RENTI AL/PL ATELE T hematocrit 44.4 % 37.5-5 1.0 Not Available [facility] ([facility]) [address] [place], [address], 05/25/2024 13:11:52 05/24/2005/25/2024 CBC WITH DIFFE RENTI AL/PL ATELE T MCV 92 fL 79-97 Not Available [facility] ([facility]) [address] [place], [address], 05/25/2024 13:11:52 05/24/2005/25/2024 CBC WITH DIFFE RENTI AL/PL ATELE T MCH 30.6 pg 26.6-3 3.0 Not Available [facility] ([facility]) [address] [facility], [place], [address], 05/25/2024 13:11:52 05/24/2005/25/2024 CBC WITH DIFFE RENTI AL/PL ATELE T MCHC 33.3 g/dL 31.5-3 5.7 Not Available [facility] ([facility]) [address] [facility], [place], [address], 05/25/2024 13:11:52 05/24/2005/25/2024 CBC WITH DIFFE RENTI AL/PL ATELE T RDW 13.2 % 11.6-1 5.4 Not Available [facility] ([facility]) [address] [facility], [place], [address], 05/25/2024 13:11:52 05/24/2005/25/2024 CBC WITH DIFFE RENTI AL/PL ATELE T platelets 203 x10e3 /uL 150-45 0 Not Available [facility] ([facility]) [address] [facility], [place], [address], 05/25/2024 13:11:52 05/24/2005/25/2024 CBC WITH DIFFE RENTI AL/PL ATELE T neutrophils 38 % notest ab. Not Available [facility] ([facility]) [address] [facility], [place], [address], 05/25/2024 13:11:52 05/24/2005/25/2024 CBC WITH DIFFE RENTI AL/PL ATELE T lymphs 50 % notest ab. Not Available [facility] ([facility]) [address] [facility], [place], [address], 05/25/2024 13:11:52 05/24/20 24 05/25/2024 CBC WITH DIFFE RENTI AL/PL ATELE T monocytes 10 % notest ab. Not Available [facility] ([facility]) [address] [facility], [place], [address], 05/25/2024 13:11:52 05/24/2005/25/2024 CBC WITH DIFFE RENTI AL/PL ATELE T eos 1 % notest ab. Not Available [facility] ([facility]) [address] [facility], [place], [address], 05/25/2024 13:11:52 05/24/2005/25/2024 CBC WITH DIFFE RENTI AL/PL ATELE T basos 1 % notest ab. Not Available [facility] ([facility]) [address] [facility], [place], [address], 05/25/2024 13:11:52 05/24/2005/25/2024 CBC WITH DIFFE RENTI AL/PL ATELE T neutrophils (absolute) 1.9 x10e3 /uL 1.4-7. 0 Not Available [facility] ([facility]) [address] [facility], [place], [address], 05/25/2024 13:11:52 05/24/2005/25/2024 CBC WITH DIFFE RENTI AL/PL ATELE T lymphs (absolute) 2.4 x10e3 /uL 0.7-3. 1 Not Available [facility] ([facility]) [address] [facility], [place], [address], 05/25/2024 13:11:52 05/24/2005/25/2024 CBC WITH DIFFE RENTI AL/PL ATELE T monocytes(ab solute) 0.5 x10e3 /uL 0.1-0. 9 Not Available [facility] ([facility]) [address] [facility], [place], [address], 05/25/2024 13:11:52 05/24/2005/25/2024 CBC WITH DIFFE RENTI AL/PL ATELE T eos (absolute) 0.1 x10e3 /uL 0.0-0. 4 Not Available [facility] ([facility]) [address] [facility], [place], [address], 05/25/2024 13:11:52 05/24/2005/25/2024 CBC WITH DIFFE RENTI AL/PL ATELE T baso (absolute) 0.1 x10e3 /uL 0.0-0. 2 Not Available [facility] ([facility]) [address] [facility], [place], [address], 05/25/2024 13:11:52 05/24/2005/25/2024 CBC WITH DIFFE RENTI AL/PL ATELE T immature granulocytes 0 % notest ab. Not Available [facility] ([facility]) [address] [facility], [place], [address], 05/25/2024 13:11:52 05/24/2005/25/2024 CBC WITH DIFFE RENTI AL/PL ATELE T immature grans (abs) 0.0 x10e3 /uL 0.0-0. 1 Not Available [facility] ([facility]) [address] [place], [address], 05/25/2024 13:11:52 02/02/20 25 02/02/2025 LIPID PANEL W/ CHOL/ HDL RATIO cholesterol, total 148 mg/dL 100-19 9 Not Available [facility] [address] [place] [address], [address], 02/07/2025 07:06:42 02/02/20 25 02/02/2025 LIPID PANEL W/ CHOL/ HDL RATIO triglyceride s 127 mg/dL 0-149 Not Available [facility] [address] [place], [address], 02/07/2025 07:06:42 02/02/20 25 02/02/2025 LIPID PANEL W/ CHOL/ HDL RATIO HDL cholesterol 55 mg/dL >39 Not Available [facility] [address] [place], [address], 02/07/2025 07:06:42 02/02/2002/02/2025 LIPID PANEL W/ CHOL/ HDL RATIO VLDL cholesterol kellie 22 mg/dL 5-40 Not Available [facility] [address] [place], [address], 02/07/2025 07:06:42 02/02/20 25 02/02/2025 LIPID PANEL W/ CHOL/ HDL RATIO LDL chol calc ([facility]) 71 mg/dL 0-99 Not Available [facility] [address] [place] [address], [address], 02/07/2025 07:06:42 02/02/20 25 02/02/2025 LIPID PANEL W/ CHOL/ HDL RATIO T. chol/HDL ratio 2.7 ratio 0.0-5. 0 T. Chol/ HDL Ratio Men Women 1/2 Avg.R isk 3.4 3.3 Avg.R isk 5.0 4.4 2X Avg.R isk 9.6 7.1 3X Avg.R isk 23.4 11.0 Not Available [facility] [address] [place], [address], 02/07/2025 07:06:42 02/02/2002/02/2025 TSH+F REE T4 TSH 1.560 uIU/m L 0.450- 4.500 Not Available [facility] [address] [place], [address], 02/07/2025 07:06:43 02/02/2002/02/2025 TSH+F REE T4 T4,free(dire ct) 1.18 NG/dL 0.82-1 .77 Not Available [facility] [address] [place] [address], [address], 02/07/2025 07:06:43 02/02/20 25 02/02/2025 COMP. METAB OLIC PANEL (14) glucose 97 mg/dL 70-99 Not Available [facility] [address] [place], [address], 02/07/2025 07:06:44 02/02/20 25 02/02/2025 COMP. METAB OLIC PANEL (14) BUN 14 mg/dL 6-24 Not Available [facility] [address] [place], [address], 02/07/2025 07:06:44 02/02/20 25 02/02/2025 COMP. METAB OLIC PANEL (14) creatinine 0.92 mg/dL 0.76-1 .27 Not Available [facility] [address] [place], [address], 02/07/2025 07:06:44 02/02/20 25 02/02/2025 COMP. METAB OLIC PANEL (14) eGFR 105 mL/mi n/1.7 3 >59 Not Available [facility] [address] [place], [address], 02/07/2025 07:06:44 02/02/20 25 02/02/2025 COMP. METAB OLIC PANEL (14) BUN/creatini ne ratio 15 9-20 Not Available [facility] [address] [place], [address], 02/07/2025 07:06:44 02/02/20 25 02/02/2025 COMP. METAB OLIC PANEL (14) sodium 141 mmol/ L 134-14 4 Not Available [facility] [address] [place], [address], 02/07/2025 07:06:44 02/02/20 25 02/02/2025 COMP. METAB OLIC PANEL (14) potassium 4.3 mmol/ L 3.5-5. 2 Not Available [facility] [address] [place], [address], 02/07/2025 07:06:44 02/02/20 25 02/02/2025 COMP. METAB OLIC PANEL (14) chloride 103 mmol/ L 96-106 Not Available [facility] [address] [place], [address], 02/07/2025 07:06:44 02/02/20 25 02/02/2025 COMP. METAB OLIC PANEL (14) carbon dioxide, total 23 mmol/ L 20-29 Not Available [facility] [address] [place], [address], 02/07/2025 07:06:44 02/02/20 25 02/02/2025 COMP. METAB OLIC PANEL (14) calcium 9.5 mg/dL 8.7-10 .2 Not Available [facility] [address] [place], [address], 02/07/2025 07:06:44 02/02/20 25 02/02/2025 COMP. METAB OLIC PANEL (14) protein, total 6.7 g/dL 6.0-8. 5 Not Available [facility] [address] [place], [address], 02/07/2025 07:06:44 02/02/20 25 02/02/2025 COMP. METAB OLIC PANEL (14) albumin 4.8 g/dL 4.1-5. 1 Not Available [facility] [address] [place], [address], 02/07/2025 07:06:44 02/02/20 25 02/02/2025 COMP. METAB OLIC PANEL (14) globulin, total 1.9 g/dL 1.5-4. 5 Not Available [facility] [address] [place], [address], 02/07/2025 07:06:44 02/02/20 25 02/02/2025 COMP. METAB OLIC PANEL (14) bilirubin, total 0.7 mg/dL 0.0-1. 2 Not Available [facility] [address] [place], [address], 02/07/2025 07:06:44 02/02/20 25 02/02/2025 COMP. METAB OLIC PANEL (14) alkaline phosphatase 60 IU/L 44-121 Not Available [facility] [address] [place], [address], 02/07/2025 07:06:44 02/02/20 25 02/02/2025 COMP. METAB OLIC PANEL (14) AST (SGOT) 36 IU/L 0-40 Not Available [facility] [address] [place], [address], 02/07/2025 07:06:44 02/02/20 25 02/02/2025 COMP. METAB OLIC PANEL (14) ALT (SGPT) 39 IU/L 0-44 Not Available [facility] [address] [place], [address], 02/07/2025 07:06:44 02/02/20 25 02/02/2025 HEMOG LOBIN A1C hemoglobin A1C 5.5 % 4.8-5. 6 Predi abete s: 5.7 - 6.4 Diabe daniel: >6.4 Glyce yarelis contr ol for adult s with diabe daniel: <7.0 Not Available [facility] [address] [place], [address], 02/07/2025 07:06:45 02/02/20 25 02/02/2025 CBC WITH DIFFE RENTI AL/PL ATELE T WBC 4.8 x10e3 /uL 3.4-10 .8 Not Available [facility] [address] [place], [address], 02/07/2025 07:06:46 02/02/20 25 02/02/2025 CBC WITH DIFFE RENTI AL/PL ATELE T RBC 4.70 x10e6 /uL 4.14-5 .80 Not Available [facility] [address] [place], [address], 02/07/2025 07:06:46 02/02/2002/02/2025 CBC WITH DIFFE RENTI AL/PL ATELE T hemoglobin 14.6 g/dL 13.0-1 7.7 Not Available [facility] [address] [place], [address], 02/07/2025 07:06:46 02/02/2002/02/2025 CBC WITH DIFFE RENTI AL/PL ATELE T hematocrit 45.3 % 37.5-5 1.0 Not Available [facility] [address] [place], [address], 02/07/2025 07:06:46 02/02/20 25 02/02/2025 CBC WITH DIFFE RENTI AL/PL ATELE T MCV 96 fL 79-97 Not Available [facility] [address] [place], [address], 02/07/2025 07:06:46 02/02/2002/02/2025 CBC WITH DIFFE RENTI AL/PL ATELE T MCH 31.1 pg 26.6-3 3.0 Not Available [facility] [address] [place], [address], 02/07/2025 07:06:46 02/02/2002/02/2025 CBC WITH DIFFE RENTI AL/PL ATELE T MCHC 32.2 g/dL 31.5-3 5.7 Not Available [facility] [address] [place], [address], 02/07/2025 07:06:46 02/02/20 25 02/02/2025 CBC WITH DIFFE RENTI AL/PL ATELE T RDW 13.2 % 11.6-1 5.4 Not Available [facility] [address] [place], [address], 02/07/2025 07:06:46 02/02/20 25 02/02/2025 CBC WITH DIFFE RENTI AL/PL ATELE T platelets 205 x10e3 /uL 150-45 0 Not Available [facility] [address] [place], [address], 02/07/2025 07:06:46 02/02/20 25 02/02/2025 CBC WITH DIFFE RENTI AL/PL ATELE T neutrophils 48 % notest ab. Not Available [facility] [address] [place], [address], 02/07/2025 07:06:46 02/02/20 25 02/02/2025 CBC WITH DIFFE RENTI AL/PL ATELE T lymphs 41 % notest ab. Not Available [facility] [address] [place], [address], 02/07/2025 07:06:46 02/02/20 25 02/02/2025 CBC WITH DIFFE RENTI AL/PL ATELE T monocytes 9 % notest ab. Not Available [facility] [address] [place], [address], 02/07/2025 07:06:46 02/02/20 25 02/02/2025 CBC WITH DIFFE RENTI AL/PL ATELE T eos 1 % notest ab. Not Available [facility] [address] [place], [address], 02/07/2025 07:06:46 02/02/20 25 02/02/2025 CBC WITH DIFFE RENTI AL/PL ATELE T basos 1 % notest ab. Not Available [facility] [address] [place], [address], 02/07/2025 07:06:46 02/02/20 25 02/02/2025 CBC WITH DIFFE RENTI AL/PL ATELE T neutrophils (absolute) 2.3 x10e3 /uL 1.4-7. 0 Not Available [facility] [address] [place], [address], 02/07/2025 07:06:46 02/02/20 25 02/02/2025 CBC WITH DIFFE RENTI AL/PL ATELE T lymphs (absolute) 2.0 x10e3 /uL 0.7-3. 1 Not Available [facility] [address] [place], [address], 02/07/2025 07:06:46 02/02/20 25 02/02/2025 CBC WITH DIFFE RENTI AL/PL ATELE T monocytes(ab solute) 0.4 x10e3 /uL 0.1-0. 9 Not Available [facility] [address] [place], [address], 02/07/2025 07:06:46 02/02/20 25 02/02/2025 CBC WITH DIFFE RENTI AL/PL ATELE T eos (absolute) 0.1 x10e3 /uL 0.0-0. 4 Not Available [facility] [address] [place] [address], [address], 02/07/2025 07:06:46 02/02/20 25 02/02/2025 CBC WITH DIFFE RENTI AL/PL ATELE T baso (absolute) 0.0 x10e3 /uL 0.0-0. 2 Not Available [facility] [address] [place], [address], 02/07/2025 07:06:46 02/02/20 25 02/02/2025 CBC WITH DIFFE RENTI AL/PL ATELE T immature granulocytes 0 % notest ab. Not Available [facility] [address] [facility], [place], [address], 02/07/2025 07:06:46 02/02/20 25 02/02/2025 CBC WITH DIFFE RENTI AL/PL ATELE T immature grans (abs) 0.0 x10e3 /uL 0.0-0. 1 Not Available [facility] [address] [facility], [place], [address], 02/07/2025 07:06:46 02/02/20 25 02/02/2025 PROST ATE-S PECIF IC AG prostate specific Ag 0.8 NG/mL 0.0-4. 0 Della ECLIA metho dolog y. Accor ding to the Ameri can Urolo gical Assoc iatio n, Serum PSA shoul d decre ase and remai n at undet ectab le level s after radic al prost atect yasmin. The AUA defin es bioch emica l recur rence as an initi al PSA value 0.2 ng/mL or great er follo wed by a subse quent confi rmato ry PSA value 0.2 ng/mL or great er. Value s obtai sandi with diffe rent assay metho ds or kits canno t be used inter richmond eably . Resul ts canno t be inter prete d as absol poarch evide nce of the prese nce or absen ce of alin faulkner disea se. Not Available [facility] [address] [facility], [place], [address], 02/07/2025 07:06:48 02/02/20 25 02/07/2025 TESTO STERO NE, TOTAL , LC/MS testosterone , total, lc/MS 379 NG/dL This test was devel oped and its perfo rmanc e mulu cteri stics deter mined by [facility]. It has not been clear ed or appro jack by the Food and Drug Admin istra tion. Refer ence Range : Adult Males >18 years 264 - 916 This [facility] r[facility] LC/MS -MS metho d is curre ntly certi fied by the CDC Lylao ne Stand ardiz ation Progr am (HoST ). Adult male refer marco tran is based on a popul ation of healt hy nonob shubham males (BMI <3 0) betwe en 19 and 39 years old. Duncan dewey, et.al . JCEM 2017, 102;1 161-1 173 PMID: 31285 103. Not Available [facility] [address] [facility], [place], [address], 02/07/2025 07:06:49 04/21/20 24 04/21/2024 XR, chest , 2 view No observ ation record ed. [facility] [facility] [address] [address], [place], [address], 05/12/2024 08:37:57 Result Notes None recorded. Problems Name Problem SNOMED Code Status Onset Date Resolution Date Notes Provider Name and Address Organization Details Recorded Time Hyperlipidemia 78030601 Active 2023 Danielle Chowdhury null, [place] - [facility] 4 09:48:23 Body mass index 25-29 - overweight 016437247 Active 2023 Komal Scanlon MA null, [place] - [facility] 4 11:31:59 Blood glucose outside reference range 119481667 Active 2023 STACEY Benitez Attn: Ming g,[address] [facility], [place], [address], [facility] - [facility] 4 12:30:08 Overweight 045869217 Active 2023 STACEY Benitez Attn: Jayin g,[address] [facility], [place], [address], [facility] - [facility] 4 12:30:15 Problem Notes None recorded. Procedures Surgical History Date Name Laterality Status Provider Name and Address Organization Details Recorded Time biopsy of liver completed PHILLIP eFrnandez - [facility] 10/17/2023 09:59:21 Imaging Results None recorded. Procedure Notes None recorded. Medical Equipment None Reported. Allergies No known drug allergies Medications Name Sig Start Date Stop Date Status Note LastModified by Organization Details LastModified Time status covid-19/fl u a-b antigen tst TEST DIRECTED TODAY 05/21 completed Not Available Not Available Not Available fluconazole 150 mg tablet TAKE 1 TABLET BY MOUTH EVERY DAY FOR 3 DAYS 01/14 completed Not Available Not Available Not Available ciprofloxac in 500 mg tablet TAKE 1 TABLET BY MOUTH EVERY 12 HOURS 01/14 completed Not Available Not Available Not Available amoxicillin 875 mg-potassiu m clavulanate 125 mg tablet TAKE 1 TABLET BY MOUTH EVERY 12 HOURS 05/21 completed Not Available Not Available Not Available rosuvastati n 10 mg tablet TAKE 1 TABLET BY MOUTH EVERY DAY IN THE EVENING 2024 active Not Available Not Available Not Avai lable Qbrexza 2.4 % towelette Apply by topical route for 30 days. active Not Available Not Available No t Available Vitals Date Recorded Body mass index (BMI) Body weight Provider Name and Address Organization Details Last Updated DateTime 10/17/2023 30.9 kg/m2 385388.06 g STACEY Benitez Attn: Accounting,[address] [place], [address], [facility] 10/17/2023 09:34:34 Date Recorded Body height Respiratory rate Oxygen saturation Oxygen saturation in Arterial blood by Pulse oximetry Heart rate Systolic And Diastolic Provider Name and Address Organization Details Last Updated DateTime 4 182.88 cm 18 /min 96 % 96 % 62 /min 132/78 mm[Hg] Komal Scanlon MA [facility] 4 08:58:53 Date Recorded Respiratory rate Systolic And Diastolic Provider Name and Address Organization Details Last Updated DateTime 01/14/2025 18 /min 110/80 mm[Hg] STACEY Benitez Attn: Accounting,[address] [place], [address], [facility] 01/14/2025 10:02:55 Date Recorded Body height Body mass index (BMI) Body weight Oxygen saturation Oxygen saturation in Arterial blood by Pulse oximetry Heart rate Systolic And Diastolic Provider Name and Address Organization Details Last Updated DateTime 5 182.88 cm 29.6 kg/m2 29848.1 4 g 99 % 99 % 62 /min 122/80 mm[Hg] Komal Scanlon MA [facility] 5 09:43:38 Date Recorded Body temperature Systolic And Diastolic Provider Name and Address Organization Details Last Updated DateTime 04/21/2024 99.3 [degF] 110/80 mm[Hg] STACEY Benitez Attn: Accounting,[address] [place], [address], [facility] 04/21/2024 11:47:55 Date Recorded Body height Body mass index (BMI) Body weight Respiratory rate Oxygen saturation Oxygen saturation in Arterial blood by Pulse oximetry Heart rate Systolic And Diastolic Provider Name and Address Organization Details Last Updated DateTime 4 182.88 cm 29.3 kg/m2 54318.3 1 g 18 /min 97 % 97 % 91 /min 140/88 mm[Hg] Komal Scanlon MA [facility] 4 11:33:50 Date Recorded Body height Body mass index (BMI) Body weight Respiratory rate Oxygen saturation Oxygen saturation in Arterial blood by Pulse oximetry Heart rate Systolic And Diastolic Provider Name and Address Organization Details Last Updated DateTime 4 182.88 cm 29 kg/m2 93835.7 7 g 18 /min 99 % 99 % 55 /min 140/88 mm[Hg] Komal Scanlon MA [facility] 4 15:43:04 Social History Question Answer Notes LastModified by Organizat ion Details LastModified Time Tobacco Smoking Status Former Smoker Komal Scanlon MA null, [facility] 10/17/2023 08:56:12 Do You Have An Advance Directive? No Information not available 01/14/2025 Are You Blind Or Do You Have Difficulty Seeing? No Information not available 10/17/2023 What Is Your Level Of Caffeine Consumption? Occasional Soda, Energy Drink Tea Information not available 10/17/2023 In The 14 Days Before Symptom Onset, Have You Had Close Contact With A Laboratory-confir med COVID-19 While That Case Was Ill? No Information not available 10/17/2023 In The 14 Days Before Symptom Onset, Have You Had Close Contact With A Person Who Is Under Investigation For COVID-19 While That Person Was Ill? No Information not available 10/17/2023 Have You Been To An Area Known To Be High Risk For COVID-19? No Information not available 10/17/2023 Are You Deaf Or Do You Have Serious Difficulty Hearing? No Information not available 10/17/2023 What Type Of Diet Are You Following? REGULAR Information not available 10/17/2023 Are There Any Guns Present In Your Home? No Information not available 10/17/2023 What Was The Date Of Your Most Recent Tobacco Screening? 01/14/2025 Information not available 01/14/2025 What Is Your Current Pack Years? 10-19packyears Information not available 10/17/2023 Do You Use Your Seat Belt Or Car Seat Routinely? Yes Information not available 10/17/2023 Do You Have Smoke And Carbon Monoxide Detectors In Your Home? Yes Information not available 10/17/2023 Do You Use Sunscreen Routinely? No Information not available 10/17/2023 Has Tobacco Cessation Counseling Been Provided? Yes Information not available 10/17/2023 On What Date Was Tobacco Cessation Counseling Provided? 01/14/2025 Information not available 01/14/2025 Sex: Male Functional Status Question Answer Note LastModified by Organizat ion Details LastModified Time Do you use any illicit or recreational drugs? No Information not available 10/17/2023 Do you or have you ever used any other forms of tobacco or nicotine? No Information not available 10/17/2023 What is your level of alcohol consumption? Occasional Information not available 10/17/2023 Are you currently employed? Yes Information not available 01/14/2025 Are you able to care for yourself independently? Yes Information not available 10/17/2023 What is your exercise level? Moderate Information not available 10/17/2023 Mental Status None recorded. Family History Relationship Description Onset Age of this Age Resolved Age Notes LastModified by Organization Details LastModified Time Mother Hypertensive disorder [email or web address] Not available 2023 09:59:41 Mother Hypercholest erolemia tcarterma Not available 2023 09:59:50 Father Hypertensive disorder [email or web address] Not available 2023 09:59:41 Medical History Condition Response Coronary Artery Disease N Other N High Blood Pressure N Atrial Fibrillation N Kidney or Bladder Problems N Thyroid Problems N GI Problems N Depression N COPD N Blood Clots N Skin Problems N Anemia N Heart Attack ([place]) N Anxiety Disorder N Diabetes N Muscle, Joint, or Bone Problems N Seizures/Epilepsy N Acid Reflux (GERD) N Cancer N Stroke N Asthma N Allergies N High Cholesterol Y Hepatitis N Liver Disease N Headaches N Osteoporosis N Heart Failure N Immunizations Vaccine Type Date Status Note Provider Nam e and Address Organization Details Recorded Time Influenza, MDCK, quadrivalent, PF 06/25/2023 completed PHILLIP Fernandez, [place] - [facility] 05/21/2024 15:41:02 COVID-19, mRNA, LNP-S, PF, 30 mcg/0.3 mL dose 11/09/2020 completed Komal Scanlon [place] null, [place] - [facility] 05/21/2024 15:41:02 COVID-19, mRNA, LNP-S, PF, 30 mcg/0.3 mL dose 11/30/2020 completed Komal Scanlon [place], [place] - [facility] 05/21/2024 15:41:02 COVID-19, mRNA, LNP-S, PF, 30 mcg/0.3 mL dose 07/10/2021 completed Komal Scan[place], [place] [facility] 05/21/2024 15:41:02 COVID-19, mRNA, LNP-S, bivalent, PF, 50 mcg/0.5 mL or 25mcg/0.25 mL dose 06/06/2022 completed Komal Scanlon [place], [place] - [facility] 05/21/2024 15:41:02 COVID-19, mRNA, LNP-S, PF, 50 mcg/0.5 mL 06/25/2023 completed PHILLIP Fernandez, [place] - [facility] 05/21/2024 15:41:02 Past Encounters Encounter ID Performer Location Encounter Start Date Encounter Closed Date Diagnosis/Indication Diagnosis SNOMED-CT Code Diagnosis ICD10 Code Diagnosis IMO Codes Diagnosis Note [id number] Rene Mullen MD [facility] [address] [place] [address] 10/17/2023 08:50:02 10/17/2023 09:47:52 Adult health examination 785416295 Z00.01 annual wellness completed; all fasting labs ordered. Hyperlipidemia 12631072 E78.5 stable on rosuvastat in 10mg daily. fasting lipid panel due. Diabetes m ellitus screening 849084050 Z13.1 Thyroid di sorder screening 771925081 Z13.29 Long-term drug therapy 822481249 Z79.899 Endocrine/ metabolic screening 794091059 Z13.228 Screening for malignant neoplasm of prostate 708547231 Z12.5 [id number] Rene Mullen MD [facility] [employer] [address] [place] [id number] 04/21/2024 11:06:29 04/21/2024 12:55:51 Body mass index 25-29 - overweight 127878237 Z68.29 Acute uppe r respiratory infection 62527443 J06.9 Start Augmentin therapy twice daily as directed for 7 days Decreased breath sounds 95360718 R09.89 Send for chest x-ray to rule out pneumonia [id number] Rene Mullen MD [facility] [employer] [address] [place] [id number] 05/21/2024 15:12:08 05/21/2024 16:24:38 Body mass index 25-29 - overweight 426282724 Z68.29 BMI is 29 Overweight 163616735 E66 .3 Dysuria 24339909 R30.0 With some presentati on of some dysuria/bl adder spasm discomfort present with urination we will do some empiric Cipro course as well as Diflucan in case there has been some candidiasi s transferre d from his . She does not have any active symptoms but there is the chance of this being a cause. There was a bit of glucose spilling over into his dipstick urine today so we will wait the A1c testing. Patient will notify provider within 48-72 hours on any symptom improvemen t Blood gluc ose outside reference range 538281261 R73.09 We will repeat an A1c hemoglobin test, previous test in October was 5.9%. We will repeat testing to ensure there has been no radical increase Long-term drug therapy [id number] Z79.899 Repeat CBC and CMP ordered with new symptom presentati on of urinary symptoms [id number] Rene Mullen MD [facility] Ana Griffin [address] [place] [address] 01/14/2025 09:37:30 01/14/2025 10:14:04 Body mass index 25-29 - overweight [id number] Z68.29 BMI is 29.6 Overweight [id number] E66 .3 Continue diet and exercise modificati ons Adult heal th examination 562340057 Z00.01 annual wellness completed; all fasting labs ordered. Hyperlipidemia [id number] E78.5 stable on rosuvastat in 10mg daily. fasting lipid panel due. Diabetes m ellitus screening [id number] Z13.1 Diabetes screening ordered Thyroid di sorder screening [id number] Z13.29 Routine thyroid testing due Long-term drug therapy [id number] Z79.899 CBC and CMP due Endocrine/ metabolic screening [id number] Z13.228 Patient would like his testostero ne checked Screening for malignant neoplasm of prostate 668928733 Z12.5 Annual PSA due Screening for malignant neoplasm of colon 172199204 Z12.11 [id number] Refer for baseline colonoscop y Health Concerns Section Related Observation LastModified by Organization Detai ls LastModified Time None Recorded Concern Status LastModified by Organization Details LastModified Time None Recorded Advance Directives Directive N: Payers Insurance Date Sequence Insurance Name Policy Number Policy Velásquez Covered Member ID Velásquez Member ID Guarantor Name 02/22/2025 1 MARIE-TERRI (PPO) [id number] Wong Clarita [id number] Wong Otto Notes Date Note Type Note Provider Name and Address Organization Details Recorded Time 4 text/html HyperlipidemiaReported by Patientstable on lower dose statin therpay. no complaints. wellness examp. labs due. STACEY Benitez Attn: Accounting,[address] [facility], [place], [address], [facility] 10/27/2023 00:23:25 4 text/html Upper Respiratory SymptomsReported by PatientUpper Respiratory SymptomsFor quality, patient reportsproductive coughandcongested. For associated symptoms, patient reportsyellow sputum,fatigue, andnauseabut reportsno wheezing,no vomiting, andno rash. For location, patient reportsheadandchest. For severity, patient reportsmoderate. For onset/timing, patient reportssudden. For context, patient reportsno sick contacts,no foreign travel, andnon-smoker. For modifying factors, patient reportsotc medication. STACEY Benitez Attn: Accounting,[address] [facility], [place], [address], [facility] 05/09/2024 14:28:17 4 text/html Urinary FrequencyReported by PatientPatient presents with lower urinary tract symptoms, Pt. states that he noticed it on Friday states that he noticed some discomfort/ frequent urinating as well as muscle spasms over the bladder region. He has had no injury. No exposure to any infections. No discharge from the penis region. No burning when he urinates just frequency and a spasm sensation. Labs are all up-to-date recently. STACEY Benitez Attn: Accounting,[address] [facility], [place], [address], [facility] 06/12/2024 12:31:44 5 text/html HyperlipidemiaReported by Patientstable on lower dose statin therapy. no complaints. wellness examp. labs due. STACEY Benitez Attn: Accounting,[address] [facility], [place], [address], [facility] 02/04/2025 00:22:03
--- OUTSIDE RECORDS SUMMARY | 2025-05-11 00:13 | XMS_ITS | Clinical Summary ---
Author Organization [facility] Address [facility] [place] [address] Care Team Providers Care Senior Ui Designer Name Role Phone Lauren Pepper Primary Care Pr ovider Allergies Active Allergy Reactions Criticality Noted Date Comments Unclassified Drug Unknown 02/24/2020 Medications rosuvastatin (CRESTOR) 10 mg tablet rosuvastatin 10 mg tablet TAKE 1 TABLET BY MOUTH IN THE EVENING Active Active Problems No known active problems Medical History Medical History Date Comments Hypercholesteremia Family History Medical History Relation Name Comments Heart disease Father Relation Name Status Comments Father Alive Mother Alive Social History Tobacco Use Types Packs/Day Years Used Date Smoking Tobacco: Some Days Alcohol Use Standard Drinks/Week Comments Yes 0 (1 standard drink = 0.6 oz pur e alcohol) Personal Safety Answer Date Recorded Getting School Help Needed Not on file 10/25 Sex and Gender Information Value Date Recorded Sex Assigned at Not on file Legal Sex Male 10:36 AM CDT Gender Identity Not on file Sexual Orientation Not on file Obstetrics History Last Filed Vital Signs Vital Sign Reading Time Taken Comments Blood Pressure - - Pulse - - Temperature 36.4 C (97.5 F) 02/24/2020 8:42 AM CDT Respiratory Rate - - Oxygen Saturation - - Inhaled Oxygen Concentration - - Weight 97.5 kg (215 lb) 02/24/2020 8:42 AM CDT Height 182.9 cm (6') 02/24/2020 8:42 AM CDT Body Mass Index 29.16 02/24/2020 8:42 AM CDT Plan of Treatment Not on file Insurance [employer] [facility] [facility] Address: [facility] [id number] [place] [address] Care Teams Senior Ui Designer Relationship Specialty Start Date End Date Lauren Pepper PA PCP - General [employer] 02/17/20
--- OUTSIDE RECORDS SUMMARY | 2025-05-11 00:13 | XMS_ITS | Encounter Summary ---
Author Organization [employer] Address 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
[2025-05-11 07:15] VITALS: BP 119/84; PULSE 86; RESP 18; TEMP 36.3; O2SAT 100
[2025-05-11] MEDS: LACTATED RINGERS 1,000 ML 150 ML IV CONT (07:21)
--- NOTE | 2025-05-11 08:24 | P.PNAN_ITS ---
Anes - Initial Pre Proc Eval Procedure: Operation Date: 05/11/25 08:30 Proposed Procedures p Screening Colonoscopy - Robert Martínez MD Date/Time: 05/11/25 08:24 Surgeon: Robert Martínez MD Pre Op Diagnosis: Encounter for screening for malignant neoplasm of Patient Data Age: 44 Gender: M Height: 1.83 m Weight: 100.2 kg Last Vital Signs Temp 36.3 C L 05/11/25 07:15 Pulse 86 05/11/25 07:15 Resp 18 05/11/25 07:15 BP 119/84 05/11/25 07:15 Pulse Ox 100 05/11/25 07:15 O2 Del Method Room Air 05/11/25 07:15 Allergies Allergy/AdvReac Type Severity Reaction Status Date / Time No Known Allergies Allergy Verified 05/11/25 07:08 Home Medications ?Medication ?Instructions ?Recorded ?Confirmed ?Type omega 2-ozb-zau-fish oil 1,000 mg 1 cap PO DAILY 04/2604/26/25 History (120 mg-180 mg) capsule (Fish Oil) rosuvastatin 10 mg tablet 10 mg PO HS 04/26/25 5 History Patient hx anesthesia problems: none Family hx anesthesia problems: none Results Review: All pre-operative results and documents have been reviewed as part of the pre- operative evaluation. [facility] Past Medical History Medical History (Updated 05/11/25 @ 08:26 by Raul Carr MD) Obesity Hyperlipidemia Surgical History Surgical History (Updated 05/11/25 @ 08:26 by Raul Carr MD) History of liver biopsy H/O wisdom tooth extraction Social History Social History Years smoked: 20 Smoking status: Former smoker Tobacco type: cigarettes Alcohol intake: current Drinks per week: 8 Alcohol use details: Beer and liquor Substance use: never Substance use type: does not use Living arrangements: with family Spiritual care concerns: No Anes - Eval Final PreProcedure Day of Procedure 05/11/25 08:24 Patient weight: obese Heart: regular rate and rhythm Lungs: clear to auscultation Airway: Mallampati scale class II Neurological: alert and oriented Last oral intake: >/= 8 hours ASA classification: II Emergent: no Anesthetic plan: proceed Anesthesia type and monitoring: general GIVS and standard monitoring Results Review: All pre-operative results and documents have been reviewed as part of the pre- operative evaluation. Informed Consent: The patient's anesthetic plan and its attendant risks and benefits were discussed with the patient/family/POA. Questions were solicited and answers provided to the satisfaction of the patient/family/POA.
--- NOTE | 2025-05-11 08:24 | P.PNAN_ITS ---
Anes - Initial Pre Proc Eval Procedure: Operation Date: 05/11/25 08:30 Proposed Procedures p Screening Colonoscopy - Robert Martínez MD Date/Time: 05/11/25 08:24 Surgeon: Robert Martínez MD Pre Op Diagnosis: Encounter for screening for malignant neoplasm of Patient Data Age: 44 Gender: M Height: 1.83 m Weight: 100.2 kg Last Vital Signs Temp 97.3 F L 05/11/25 07:15 Pulse 86 05/11/25 07:15 Resp 18 05/11/25 07:15 BP 119/84 05/11/25 07:15 Pulse Ox 100 05/11/25 07:15 O2 Del Method Room Air 05/11/25 07:15 Allergies Allergy/AdvReac Type Severity Reaction Status Date / Time No Known Allergies Allergy Verified 05/11/25 07:08 Home Medications ?Medication ?Instructions ?Recorded ?Confirmed ?Type omega 9-exq-vpe-fish oil 1,000 mg 1 cap PO DAILY 04/2604/26/25 History (120 mg-180 mg) capsule (Fish Oil) rosuvastatin 10 mg tablet 10 mg PO HS 04/26/25 5 History Patient hx anesthesia problems: none Family hx anesthesia problems: none Results Review: All pre-operative results and documents have been reviewed as part of the pre- operative evaluation. [facility] Social History Social History Years smoked: 20 Smoking status: Former smoker Tobacco type: cigarettes Alcohol intake: current Drinks per week: 8 Alcohol use details: Beer and liquor Substance use: never Substance use type: does not use Living arrangements: with family Spiritual care concerns: No Anes - Eval Final PreProcedure Day of Procedure 05/11/25 08:24 Patient weight: obese Lungs: normal air movement Airway: Mallampati scale class II Neurological: alert and oriented Last oral intake: >/= 8 hours ASA classification: III Emergent: no Anesthetic plan: proceed Anesthesia type and monitoring: general GIVS and standard monitoring Results Review: All pre-operative results and documents have been reviewed as part of the pre- operative evaluation. BMI 30, ex smoker, hyperlipidemia. Informed Consent: The patient's anesthetic plan and its attendant risks and benefits were discussed with the patient/family/POA. Questions were solicited and answers provided to the satisfaction of the patient/family/POA.
--- NOTE | 2025-05-11 08:35 | PM.IMHP ---
H&P: HPI History of Present Illness Date/Time: 05/11/25 08:35 Chief Complaint: Screening colonoscopy Narrative: This is the patient's first colonoscopy. There are no GI symptoms and there is no family history of colorectal cancer. Review of Systems Review of Systems: All systems reviewed & are unremarkable except as noted in HPI and below [facility] Past Medical History Medical History (Updated 05/11/25 @ 08:36 by Robert Martínez MD) Obesity Hyperlipidemia Surgical History Surgical History (Updated 05/11/25 @ 08:26 by Raul Carr MD) History of liver biopsy H/O wisdom tooth extraction Social History Social History Years smoked: 20 Smoking status: Former smoker Tobacco type: cigarettes Alcohol intake: current Drinks per week: 8 Alcohol use details: Beer and liquor Substance use: never Substance use type: does not use Living arrangements: with family Spiritual care concerns: No Meds Home Medications and Allergies Home Medications ?Medication ?Instructions ?Recorded ?Confirmed ?Type omega 2-fbj-pae-fish oil 1,000 mg 1 cap PO DAILY 04/26/25 04/26/25 History (120 mg-180 mg) capsule (Fish Oil) rosuvastatin 10 mg tablet 10 mg PO HS 04/26/25 04/26/25 History Allergies Allergy/AdvReac Type Severity Reaction Status Date / Time No Known Allergies Allergy Verified 05/11/25 07:08 Vital Signs Vital Signs - 24 hr 05/11/25 07:15 Temperature 97.3 F L Pulse Rate 86 Respiratory Rate 18 Blood Pressure 119/84 Pulse Oximetry 100 Oxygen Delivery Room Air Exam Const: General: cooperative and healthy appearing Resp: Effort & Inspection: normal respiratory effort and able to speak in complete sentences Auscultation: clear to auscultation bilaterally Cardio: Rate: regular rate Rhythm: regular rhythm GI: Inspection: normal to inspection GI Palp: No No hepatosplenomegaly present Auscultation: normal bowel sounds Rectal Exam: deferred Skin: General skin exam: normal color Psych: Appearance: grossly normal Mental Status: mental status grossly normal Assessment and Plan Assessment and plan (1) Encounter for screening colonoscopy: Code(s): Z12.11 - Encounter for screening for malignant neoplasm of colon Status: Acute Assessment and Plan: The patient is deemed a good candidate for the procedure. Consent signed. Will proceed.
--- NOTE | 2025-05-11 08:58 | S_PTH ---
PATIENT: Wong Otto LOC: [facility] U#:[id number] AGE/SX: 44/M ROOM: RE05/11/[address]: Robert Martínez MD : 1980 BED: DIS: 05/11/2025 SPEC #: [id number] RECD: 05/11/25 09:41 STATUS: DICK REBrown #: [id number] DEANNA: 05/11/25 08:[address]: Robert Martínez DEPT: [facility] Surgical RECD BY: Briana Burgos ENTERED: 05/11/25 09:41 SP TYPE: Surgical OTHR DR: Lauren Pepper, PA-C Tissues: A - Colon Polypectomy Procedures: Hematoxylin and Eosin Stain Gross and Microscopic Level 4
[2025-05-11 09:02] VITALS: BP 106/73; PULSE 62; RESP 16; O2SAT 96
[2025-05-11 09:12] VITALS: BP 119/83; PULSE 89; RESP 20; O2SAT 100
[2025-05-11 09:22] VITALS: BP 137/89; PULSE 69; RESP 18; O2SAT 97
== END 2025-05-11 09:32 | disposition home or self-care (01) ==
PROVIDERS: PCP Physician Assistant; Referring Provider Physician Assistant; Visit Provider Internal Medicine Gastroenterology
PROC: 0DJD8ZZ Inspection of Lower Intestinal Tract, Via Natural or Artificial Opening Endoscopic (ICD-10-PCS; CPT 45378; principal; 2025-05-11 08:30)
DX: Z12.11 Encounter for screening for malignant neoplasm of colon (principal); D12.0 Benign neoplasm of cecum; E78.5 Hyperlipidemia, unspecified; E66.9 Obesity, unspecified; Z68.30 Body mass index [BMI] 30.0-30.9, adult; Z98.890 Other specified postprocedural states; Z87.891 Personal history of nicotine dependence
CPT/HCPCS: 45385; 88305; J2003; J2704; J7120